=== PATIENT | female | born 1990 | race Caucasian/White ===

== ENCOUNTER 2017-08-20 18:48 | Emergency (ER) | payer MEDICAID ==
[~2017-08-20] VITALS: Ht 149.9 cm; Wt 62.1 kg
[2017-08-20 18:54] VITALS: Ht 149.9 cm; Wt 62.1 kg
[2017-08-20 20:20] VITALS: BP 153/79
== END 2017-08-20 20:20 | disposition home or self-care (01) ==
LOC: ED 18:48
DX: J06.9 Acute upper respiratory infection, unspecified (principal)